=== PATIENT | male | born 1985 ===

== ENCOUNTER 2017-03-02 18:19 | Emergency (ER) | payer SELFPAY ==
[2017-03-02 18:23] VITALS: BMI 22.8
[2017-03-02 18:26] VITALS: BP 102/73; PULSE 84; RESP 20; TEMP 97.5; O2SAT 98
[2017-03-02] MEDS ORDERED: TDAP Vaccine 0.5 mL Syr IM ONE (19:02)
[2017-03-02] MEDS ORDERED: Absorbable Gelatin Sponge Size 100 MM ONE (19:09)
--- NOTE | 2017-03-02 19:10 | ED PDOC ---
Arrival/HPI - History of Present Illness Time/Duration: 1 hour Symptom Onset: Sudden Symptom Course: Unchanged Quality: Stabbing Severity Level: 10 Activities at Onset: Light Context: Home - General Chief Complaint: Finger,Hand,&Wrist - History of Present Illness Narrative History of Present Illness (Text): 03/02/17 19:12 Mr. Li is a 31 year old male with no past medical history [place] [facility] [place] after cutting his right thumb one hour [employer]. Patient reports that he was cutting tomatoes at home when he slipped and the knife sliced a piece of his right thumb off. Patient reports that the sight of blood makes him nauseous and he reports nausea since the event. He denies any wound care at home. He denies fever, chills, shortness of breath, chest pain, abdominal pain or any numbness/tingling/weakness of any extremity. (JETHRO JULIO) Past Medical History - Provider Review Nursing Documentation Reviewed: Yes - Travel History Have you recently traveled outside [place] w/in the past 3 mons?: No - Past History Past History: No Previous - Infectious Disease Hx of Infectious Diseases: None - Psychiatric Hx Substance Use: No - Anesthesia Hx Anesthesia: No Family/Social History - Physician Review Nursing Documentation Reviewed: Yes Family/Social History: Unknown Family HX Smoking Status: Never Smoked Hx Alcohol Use: No Hx Substance Use: No Allergies/Home Meds Allergies/Adverse Reactions: Allergies No Known Allergies Allergy (Verified 03/02/17 18:23) Home Medications: Home Meds Medication Instructions Recorded Confirmed No Known Home Med 03/02/17 03/02/17 Review of Systems - Physician Review All systems were reviewed & negative as marked: Yes - Review of Systems Constitutional: Normal. absent: Fevers, Night Sweats Eyes: Normal. absent: Vision Changes ENT: Normal Respiratory: Normal. absent: SOB, Cough Cardiovascular: Normal. absent: Chest Pain, Palpitations Gastrointestinal: Nausea. absent: Normal, Abdominal Pain, Constipation, Diarrhea, Vomiting Genitourinary Male: Normal. absent: Dysuria Musculoskeletal: Normal Skin: Other (Avulsion injury to right thumb). absent: Normal Neurological: Normal. absent: Headache, Dizziness Endocrine: Normal Hemo/Lymphatic: Normal Psychiatric: Normal Physical Exam Vital Signs Reviewed: Yes Temperature: Afebrile Blood Pressure: Normal Pulse: Regular Respiratory Rate: Normal Appearance: Positive for: Well-Appearing, Non-Toxic, Uncomfortable Pain Distress: Moderate Mental Status: Positive for: Alert and Oriented X 3 - Systems Exam Head: Present: Atraumatic, Normocephalic Pupils: Present: PERRL Extroacular Muscles: Present: EOMI Conjunctiva: Present: Normal Mouth: Present: Moist Mucous Membranes Neck: Present: Normal Range of Motion, Trachea Midline. No: JVD Respiratory/Chest: Present: Clear to Auscultation, Good Air Exchange. No: Respiratory Distress, Accessory Muscle Use Cardiovascular: Present: Regular Rate and Rhythm, Normal S1, S2, Peripheal Pulses Present. No: Murmurs, Irregular Rhythm, Tachycardic, Bradycardic Abdomen: Present: Normal Bowel Sounds. No: Tenderness, Distention, Peritoneal Signs Back: Present: Normal Inspection. No: CVA Tenderness, Midline Tenderness, Paraspinal Tenderness Upper Extremity: Present: Normal ROM, NORMAL PULSES, Tenderness, Neurovascularly Intact, Capillary Refill < 2s, Other (1-2cm avulsion wound of palmar aspect of right thumb). No: Normal Inspection, Cyanosis, Edema Lower Extremity: Present: Normal Inspection, NORMAL PULSES, Normal ROM, Capillary Refill < 2 s. No: Edema, CALF TENDERNESS Neurological: Present: GCS=15, CN II-XII Intact, Speech Normal Skin: Present: Warm, Dry, Normal Color, Other (See above). No: Rashes Lymphatic: No: Cervical Adenopathy Psychiatric: Present: Alert, Oriented x 3, Normal Insight, Normal Concentration Vital Signs Temp Pulse Resp BP Pulse Ox 03/02/17 18:25 97.5 F L 84 20 102/73 98 Medical Decision Making ED Course and Treatment: Patient Seen With Resident: In agreement with resident note which contains more details about the patient. Patient was seen and evaluated with resident. Came up with plan and treatment together. (Mati Stockton) 03/02/17 19:19 Impression: 31 year old male with no past medical history [place] [facility] [place] cutting his right thumb one hour [employer] Plan: -Irrigation of wound with betadine and normal saline -Gelfoam with wound care -Toradol 60mg IM for pain control -reassess and disposition Prior Visits: No previous visits. (JETHRO JULIO) - Medication Orders Current Medication Orders: Discontinued Medications Gelatin (Gelfoam Size 100) 1 spg MM ONCE ONE Stop: 03/02/17 19:10 Last Admin: 03/02/17 19:24 Dose: 1 spg Ketorolac Tromethamine (Toradol) 60 mg IM STAT STA Stop: 03/02/17 19:03 Last Admin: 03/02/17 19:25 Dose: 60 mg MAR Pain Assessment Document 03/02/17 19:25 SF (Rec: 03/02/17 19:25 [email or web address] Pain Reassessment Is this a pain reassessment? Yes Sleep Is patient sleeping during reassessment? No Presence of Pain Presence of Pain Yes IM Administration Charges Document 03/02/17 19:25 SF (Rec: 03/02/17 19:25 [id number] Injection Site MAR Injection Site Left Deltoid Charges for Administration # of IM Administrations 1 Tetanus/Reduced Diphtheria/Acell Pertussis (Boostrix Vaccine Inj) 0.5 ml IM .ONCE ONE Stop: 03/02/17 19:03 Last Admin: 03/02/17 19:25 Dose: 0.5 ml MAR Immunization Data Document 03/02/17 19:25 SF (Rec: 03/02/17 19:26 SF [id number] Immunization Data Opt out of sending immunization data to Yes respository? Suppress immunization data to other No providers from registry? Vaccine Eligibility Yes Vaccine Lot Number [id number] Site Given Right Deltoid Disposition/Present on Arrival - Present on Arrival Any Indicators Present on Arrival: No History of DVT/PE: No History of Uncontrolled Diabetes: No Urinary Catheter: No History of Decub. Ulcer: No History Surgical Site Infection Following: None - Disposition Have Diagnosis and Disposition been Completed?: Yes Disposition Time: 19:37 - Disposition Diagnosis: Avulsion of skin of finger Disposition: HOME/ ROUTINE Condition: GOOD Discharge Instructions (ExitCare): Skin Avulsion (ED) Additional Instructions: Mr. Li, thank you for letting us take care of you today. Your provider was Mr. Li. You were treated for avulsion of the skin on your thumb. The emergency medical care you received today was directed at your acute symptoms. If you were prescribed any medication, please fill it and take as directed. It may take several days for your symptoms to resolve. Return to the Emergency Department if your symptoms worsen, do not improve, or if you have any other problems. Please contact your doctor or call one of the physicians/clinics you have been referred to that are listed on the Patient Visit Information form that is included in your discharge packet. Bring any paperwork you were given at discharge with you along with any medications you are taking to your follow up visit. Our treatment cannot replace ongoing medical care by a primary care provider (PCP) outside of the emergency department. PLEASE FOLLOW UP WITH YOUR PRIMARY CARE DOCTOR WITHIN ONE WEEK Thank you for allowing the [facility] team to be part of your care today. Referrals: PCP,NO [Primary Care Provider] - Follow up with primary Forms: Geno (Ukrainian)
[2017-03-02] MEDS ORDERED: Absorbable Gelatin Sponge Size 12-7 ONE (19:28)
== END 2017-03-02 19:40 | disposition home or self-care (01) ==
LOC: ED 18:19
DX: S61.101A Unspecified open wound of right thumb with damage to nail, initial encounter (principal); W26.0XXA Contact with knife, initial encounter; Y93.G1 Activity, food preparation and clean up; Y92.009 Unspecified place in unspecified non-institutional (private) residence as the place of occurrence of the external cause; Z23 Encounter for immunization
CPT/HCPCS: 90471; 90715; 96372; 99284; J1885